=== PATIENT | male | born 1965 | race Caucasian/White ===

== ENCOUNTER 2016-08-30 06:11 | Emergency (ER) | payer BC ==
--- NOTE | 2016-08-30 06:19 | ED Physician Documentation ---
PD HPI SKIN - Stated complaint Stated Complaint: BUMP BEHIND EAR - Chief complaint Chief Complaint: Heent - History obtained from History obtained from: Patient - History of Present Illness Timing - onset: How many days ago (few) Timing - duration: Days (he has had a small bump behind the left ear for several months, without tenderness. Now with the redness, significant swelling and tenderness over the past few days.) Timing - details: Gradual onset Quality / character: Painful, Discolored (red), Swelling Associated symptoms: No: Fever, Myalgias, Abd pain, N/V/D Recently seen: Not recently seen Review of Systems Constitutional: denies: Fever, Chills Ears: denies: Loss of hearing, Drainage/discharge Throat: denies: Sore throat Respiratory: denies: Dyspnea, Cough PD PAST MEDICAL HISTORY - Present Medications Home Medications: Ambulatory Orders Medication Instructions Recorded Confirmed Sulfamethox/Trimeth 800/160 1 each PO BID #14 tablet 08/30/16 [Bactrim Ds 800/160] - Allergies Allergies/Adverse Reactions: Allergies Allergy/AdvReac Type Severity Reaction Status Date / Time Penicillins Allergy Rash Verified 08/30/16 06:19 PD ED PE NORMAL - Vitals Vital signs reviewed: Yes - General General: Alert and oriented X 3, No acute distress, Well developed/nourished - HEENT HEENT: Ears normal, Other (behind left ear is rounded fluctuant bump with redness and tenderness c/w abscess. ) - Neck Neck: Supple, no meningeal sign, No adenopathy Results - Vitals Vitals: Vital Signs - 24 hr 08/30/16 08/30/16 06:15 07:01 Temperature 37.0 C Heart Rate 78 74 Respiratory 15 18 Rate Blood Pressure 169/109 H 159/91 H O2 Saturation 99 97 Procedures - Abscess I&D (location) left postauricular Preparation: Lidocaine 1%, With epi Incision: Incised with scalpel, Purulent drainage, Irrigated. No: Packed, Culture obtained Other: Pt tolerated well, Dressing applied, Antibiotic prescribed PD MEDICAL DECISION MAKING - ED course Complexity details: considered differential, d/w patient Departure - Departure Disposition: 01 Home, Self Care Clinical Impression: Infected sebaceous cyst of skin Condition: Stable Record reviewed to determine appropriate education?: Yes Instructions: ED Abscess IandD Prescriptions: Sulfamethox/Trimeth 800/160 [Bactrim Ds 800/160] 1 each PO BID #14 tablet Comments: Warm moist towels to the area 2-3 times daily. Cover it at work with bandaid/ etc to keep clean. Bactrim antibiotic twice daily for a week for the underlying infection. Tylenol or Ibuprofen as needed for pains. Recheck if not better over the next several days. The infection part should clear and it will be back to the underlying cyst or such that you have had. You can see [facility] or Primary Care clinic in the future to have the cyst removed from under the skin after the infection is all cleared. Discharge Date/Time: 08/30/16 07:03
[2016-08-30] MEDS ORDERED: LIDOCAINE 1%-EPI 1:100000 20 ML MDV SUBQ STA (06:26)
[2016-08-30] MEDS ORDERED: SULFAMETH/TRIMETH DS 800/160 MG TABLET PO STA (06:26)
[2016-08-30] MEDS ORDERED: LIDOCAINE MPF 1%-EPI 1:200000 30 ML VIAL ONE (06:28)
[2016-08-30] MEDS ORDERED: SULFAMETH/TRIMETH DS 800/160 MG TABLET PO ONE (06:28)
[2016-08-30] MEDS ORDERED: IBUPROFEN 600 MG TABLET PO STA (06:53)
[2016-08-30] MEDS ORDERED: IBUPROFEN 600 MG TABLET PO ONE (06:57)
[2016-08-30 07:03] VITALS: BP 159/91
== END 2016-08-30 07:03 | disposition home or self-care (01) ==
LOC: ED 06:11
DX: L72.3 Sebaceous cyst (principal)
CPT/HCPCS: 10060; 99283; A9270